=== PATIENT | female | born 1940 | race Caucasian/White ===

== ENCOUNTER 2021-03-25 16:51 | Inpatient (IN) | payer MEDICARE, OTHER ==
[~2021-03-25] VITALS: Ht 157.5 cm; Wt 32.2 kg
[2021-03-25] MEDS ORDERED: SODIUM CHLORIDE 0.9% 500ML 500 ML IV ONE (18:15)
[2021-03-25] MEDS ORDERED: ASPIRIN 81 MG CHEW TAB PO ONE (18:15)
[2021-03-25 18:49] LABS: BASOPHILS # (AUTO) 0.1 (0.0-0.1); BASOPHILS % 0.7 % (0.0-1.0); EOSINOPHILS # (AUTO) 0.1 (0.0-0.4); EOSINOPHILS % 1.1 % (0.0-6.0); HEMOGLOBIN 11.3 g/dL (12.0-16.0); LYMPHOCYTES # (AUTO) 1.7 (1.0-3.2); LYMPHOCYTES % 23.9 % (18.0-39.1); MEAN CORPUSCULAR HGB CONC 31.4 g/dL (31-35); MEAN CORPUSCULAR VOLUME 98.6 fL (81-99); MONOCYTES # (AUTO) 0.6 (0.2-0.8); MONOCYTES % 8.1 % (4.4-11.3); NEUTROPHILS # (AUTO) 4.7 (2.1-6.9); NEUTROPHILS % 65.9 % (38.7-80.0); PLATELET COUNT 273 x10e3/uL (140-360); RED BLOOD COUNT 3.65 x10e6/uL (3.6-5.1); RED CELL DISTRIBUTION WIDTH 21.2 % (11.7-14.4)
[2021-03-25 18:58] LABS: CLARITY,URINE SL CLOUDY (CLEAR); COLOR,URINE AMBER (YELLOW); KETONES,URINE NEGATIVE (NEGATIVE); LEUKOCYTE ESTERASE ,URINE TRACE (NEGATIVE); NITRITE,URINE NEGATIVE (NEGATIVE); PROTEIN,URINE DIPSTICK 1+ (NEGATIVE); URINE UROBILINOGEN 4 mg/dL (0.2 - 1)
[2021-03-25 19:10] LABS: BACTERIA,URINE MODERATE /HPF; EPITHELIAL CELLS,URINE FEW /LPF; RBC,URINE 0-5 /HPF (0-5)
[2021-03-25 19:17] LABS: ALBUMIN 2.9 g/dL (3.5-5.0); ALBUMIN/GLOBULIN RATIO 0.7 (0.8-2.0); ANION GAP 15.1 mmol/L (8-16); CALCIUM 9.3 mg/dL (8.4-10.2); CREATININE, SERUM 1.1 mg/dL (0.57-1.11); POTASSIUM 3.1 mmol/L (3.5-5.1)
[2021-03-25 19:23] LABS: CREATINE KINASE MB 1.2 ng/mL (0-5.0)
[2021-03-25] MEDS ORDERED: POTASSIUM CHLORIDE 20 MEQ TAB CR PO STA (19:25)
[2021-03-25 19:38] LABS: AMYLASE 137 U/L (25-125); LIPASE 90 U/L (8-78)
[2021-03-25] MEDS ORDERED: SODIUM CHLORIDE 0.9% 50ML 50 ML ONE (19:53)
[2021-03-25] MEDS ORDERED: IOPAMIDOL 370 MG/ML 200 ML INFUS..BTL INJ ONE (19:53)
[2021-03-25] MEDS ORDERED: ONDANSETRON HCL INJ 2MG/ML 2ML 2 MG/ML VIAL IV PRN (21:45)
[2021-03-25] MEDS: SODIUM CHLORIDE 0.9% 1000ML 1,000 ML IV SCH (22:51)
[2021-03-26] VITALS (10 sets, daily range): BP systolic 119–145; BP diastolic 61–75
[2021-03-26] MEDS ORDERED: ACETAZOLAMIDE250 MG PO (03:10)
[2021-03-26] MEDS ORDERED: NEURONTIN100 MG PO (03:33)
[2021-03-26] MEDS ORDERED: COMBIVENT RESPIM4 GM IH (03:33)
[2021-03-26] MEDS ORDERED: ASPIRIN81 MG PO (03:33)
[2021-03-26] MEDS ORDERED: DALIRESP500 MCG PO (03:33)
[2021-03-26] MEDS ORDERED: vitamin d (03:33)
[2021-03-26] MEDS ORDERED: PEDIALYTE1000 ML PO (03:33)
[2021-03-26] MEDS ORDERED: ONDANSETRON ODT4 MG PO (03:33)
[2021-03-26] MEDS ORDERED: PROAIR HFA INH8.5 GM (03:33)
[2021-03-26] MEDS ORDERED: LEVOTHYROXINE100 MC2 PO (03:33)
[2021-03-26] MEDS ORDERED: LATANOPROST2.5 ML OP (03:33)
[2021-03-26] MEDS ORDERED: VITAMIN C500 MG PO (03:33)
[2021-03-26] MEDS ORDERED: TIZANIDINE HCL4 MG PO (03:33)
[2021-03-26] MEDS ORDERED: FLUNISOLIDE25 ML (03:33)
[2021-03-26] MEDS ORDERED: DIPHENOXYLATE-1 EACH PO (03:33)
[2021-03-26] MEDS ORDERED: POTASSIUM600 MG (03:33)
[2021-03-26] MEDS ORDERED: MEGESTROL ACETA20 MG PO (03:33)
[2021-03-26] MEDS ORDERED: MIRTAZAPINE15 MG PO (03:33)
[2021-03-26] MEDS: SODIUM CHLORIDE 0.9% 1000ML 1,000 ML IV SCH (05:45)
[2021-03-26 08:16] LABS: BASOPHILS % 0.7 % (0.0-1.0); EOSINOPHILS # (AUTO) 0.3 (0.0-0.4); EOSINOPHILS % 4.6 % (0.0-6.0); HEMATOCRIT 32.7 % (34.2-44.1); HEMOGLOBIN 10.4 g/dL (12.0-16.0); LYMPHOCYTES # (AUTO) 1.6 (1.0-3.2); LYMPHOCYTES % 26.9 % (18.0-39.1); MEAN CORPUSCULAR HEMOGLOBIN 30.9 pg (28-32); MEAN CORPUSCULAR HGB CONC 31.8 g/dL (31-35); MONOCYTES # (AUTO) 0.6 (0.2-0.8); MONOCYTES % 9.8 % (4.4-11.3); NEUTROPHILS # (AUTO) 3.4 (2.1-6.9); NEUTROPHILS % 57.7 % (38.7-80.0); PLATELET COUNT 245 x10e3/uL (140-360); RED BLOOD COUNT 3.37 x10e6/uL (3.6-5.1); RED CELL DISTRIBUTION WIDTH 20.9 % (11.7-14.4)
[2021-03-26 08:42] LABS: ALBUMIN 2.6 g/dL (3.5-5.0); ALBUMIN/GLOBULIN RATIO 0.8 (0.8-2.0); ANION GAP 12.2 mmol/L (8-16); CALCIUM 8.5 mg/dL (8.4-10.2); CREATININE, SERUM 0.8 mg/dL (0.57-1.11); POTASSIUM 3.2 mmol/L (3.5-5.1)
[2021-03-26 08:43] LABS: AMYLASE 97 U/L (25-125); LIPASE 39 U/L (8-78)
[2021-03-26] MEDS ORDERED: ONDANSETRON HCL INJ 2MG/ML 2ML 2 MG/ML VIAL IV PRN (08:45)
[2021-03-26] MEDS ORDERED: TIZANIDINE HCL 4 MG TAB PO PRN (08:45)
[2021-03-26] MEDS ORDERED: ACETAMINOPHEN 325 MG TAB PO PRN (08:45)
[2021-03-26] MEDS: MEGESTROL ACETATE 40 MG TAB PO SCH ×2 (09:00→16:37)
[2021-03-26] MEDS ORDERED: LEVOTHYROXINE SODIUM PO SCH (09:00)
[2021-03-26] MEDS: ASCORBIC ACID 500 MG TAB PO SCH (09:00)
[2021-03-26] MEDS ORDERED: ALBUTEROL/IPRATROPIUM 3 ML NEB NEB PRN (09:00)
[2021-03-26] MEDS: ALBUTEROL/IPRATROPIUM 3 ML NEB NEB SCH ×3 (10:30→18:53)
[2021-03-26] MEDS ORDERED: SODIUM CHLORIDE 0.9% 50ML 50 ML ONE (10:38)
[2021-03-26] MEDS ORDERED: GADOBENATE DIMEGLUMINE 1 ML IV ONE (10:39)
[2021-03-26] MEDS ORDERED: POTASSIUM CHLORIDE 10MEQ EA PO ONE (11:00)
[2021-03-26] MEDS: (Roflumilast (Daliresp) 500 MCG) PO SCH (11:21)
[2021-03-26] MEDS ORDERED: LORAZEPAM INJ 2 MG/ML VIAL IV PRN (12:00)
[2021-03-26] MEDS: LEVOTHYROXINE SODIUM 100 MCG TAB PO SCH (13:00)
[2021-03-26] MEDS: SOD CHL 0.45%/POT CHL 20MEQ 1,000 ML IV SCH ×2 (13:08→21:38)
[2021-03-26] MEDS: CEFTRIAXONE 1 GM in SODIUM CHLORIDE 0.9% 50ML 50 ML IV SCH (13:08)
[2021-03-26] MEDS ORDERED: PREDNISONE 20 MG TAB PO SCH (16:30)
[2021-03-26] MEDS: GABAPENTIN 100 MG CAP PO SCH (21:38)
[2021-03-26] MEDS: MIRTAZAPINE 15 MG TAB PO SCH (21:38)
[2021-03-26] MEDS: LATANOPROST(OPTH) 2.5 ML BTL OP SCH (21:46)
[2021-03-27] VITALS (8 sets, daily range): BP systolic 118–144; BP diastolic 63–85
[2021-03-27] MEDS: SOD CHL 0.45%/POT CHL 20MEQ 1,000 ML IV SCH ×2 (05:00→17:10)
[2021-03-27 05:28] LABS: BASOPHILS % 0.4 % (0.0-1.0); HEMOGLOBIN 11.3 g/dL (12.0-16.0); LYMPHOCYTES # (AUTO) 0.6 (1.0-3.2); LYMPHOCYTES % 11.3 % (18.0-39.1); MEAN CORPUSCULAR HEMOGLOBIN 30.5 pg (28-32); MEAN CORPUSCULAR HGB CONC 31.4 g/dL (31-35); MONOCYTES # (AUTO) 0.1 (0.2-0.8); MONOCYTES % 1.6 % (4.4-11.3); NEUTROPHILS # (AUTO) 4.2 (2.1-6.9); NEUTROPHILS % 86.5 % (38.7-80.0); PLATELET COUNT 283 x10e3/uL (140-360); RED BLOOD COUNT 3.71 x10e6/uL (3.6-5.1); RED CELL DISTRIBUTION WIDTH 20.9 % (11.7-14.4)
[2021-03-27 06:01] LABS: ALBUMIN 2.8 g/dL (3.5-5.0); ALBUMIN/GLOBULIN RATIO 0.7 (0.8-2.0); ANION GAP 14.5 mmol/L (8-16); CALCIUM 8.9 mg/dL (8.4-10.2); CHOL/HDL RATIO 7.9 (3.0-3.6); CREATININE, SERUM 0.92 mg/dL (0.57-1.11); MAGNESIUM 1.8 MG/DL (1.3-2.1); PHOSPHORUS 2.5 MG/DL (2.3-4.7); POTASSIUM 4.5 mmol/L (3.5-5.1)
[2021-03-27] MEDS: LEVOTHYROXINE SODIUM 100 MCG TAB PO SCH (06:09)
[2021-03-27 06:23] LABS: THYROID STIMULATING HORMONE 2.041 uIU/mL (0.350-4.940)
[2021-03-27] MEDS: ALBUTEROL/IPRATROPIUM 3 ML NEB NEB SCH ×3 (07:01→18:34)
[2021-03-27] MEDS: (Roflumilast (Daliresp) 500 MCG) PO SCH (08:44)
[2021-03-27] MEDS ORDERED: PREDNISONE 20 MG TAB PO SCH (09:00)
[2021-03-27] MEDS: CEFTRIAXONE 1 GM in SODIUM CHLORIDE 0.9% 50ML 50 ML IV SCH (09:05)
[2021-03-27] MEDS: ASCORBIC ACID 500 MG TAB PO SCH (09:05)
[2021-03-27] MEDS: MEGESTROL ACETATE 40 MG TAB PO SCH ×2 (09:05→17:10)
[2021-03-27] MEDS: PREDNISONE 10 MG TAB PO SCH (09:05)
[2021-03-27] MEDS: MIRTAZAPINE 15 MG TAB PO SCH (21:10)
[2021-03-27] MEDS: GABAPENTIN 100 MG CAP PO SCH (21:10)
[2021-03-27] MEDS: LATANOPROST(OPTH) 2.5 ML BTL OP SCH (21:13)
[2021-03-28 00:06] VITALS: BP 122/68
[2021-03-28] MEDS: SOD CHL 0.45%/POT CHL 20MEQ 1,000 ML IV SCH ×2 (01:00→11:00)
[2021-03-28] MEDS: ALBUTEROL/IPRATROPIUM 3 ML NEB NEB SCH ×2 (02:49→07:40)
[2021-03-28 04:00] VITALS: BP 102/76
[2021-03-28] MEDS: LEVOTHYROXINE SODIUM 100 MCG TAB PO SCH (05:51)
[2021-03-28 07:52] VITALS: BP 121/69
[2021-03-28] MEDS: PREDNISONE 10 MG TAB PO SCH (09:00)
[2021-03-28] MEDS: (Roflumilast (Daliresp) 500 MCG) PO SCH (09:00)
[2021-03-28] MEDS: CEFTRIAXONE 1 GM in SODIUM CHLORIDE 0.9% 50ML 50 ML IV SCH (09:00)
[2021-03-28] MEDS: ASCORBIC ACID 500 MG TAB PO SCH (09:00)
[2021-03-28] MEDS: MEGESTROL ACETATE 40 MG TAB PO SCH (09:00)
[2021-03-28 09:38] VITALS: BP 121/69
[2021-03-28] MEDS ORDERED: MEGESTROL ACETA40 MG PO (11:20)
[2021-03-28] MEDS ORDERED: KEFLEX125 MG/5 M PO (11:21)
[2021-03-28] MEDS ORDERED: PREDNISONE10 MG PO (11:21)
[2021-03-28 11:37] VITALS: BP 144/78
== END 2021-03-28 12:00 | disposition home or self-care (01) | DRG 442 ==
LOC: ER 18:20 → ERHOLD 21:47 → MED/SURG 03-26 01:34
PROVIDERS: ADMIT Internal Medicine; ATTEND Internal Medicine
DX: K75.4 Autoimmune hepatitis (principal); C34.32 Malignant neoplasm of lower lobe, left bronchus or lung; Z68.1 Body mass index [BMI] 19.9 or less, adult; N39.0 Urinary tract infection, site not specified; E44.0 Moderate protein-calorie malnutrition; E06.3 Autoimmune thyroiditis; I71.4 Abdominal aortic aneurysm, without rupture; I10 Essential (primary) hypertension; J44.9 Chronic obstructive pulmonary disease, unspecified; R63.0 Anorexia; Z20.822 Contact with and (suspected) exposure to COVID-19; Z87.891 Personal history of nicotine dependence; Z85.3 Personal history of malignant neoplasm of breast
CPT/HCPCS: 36415; 71045; 74177; 74183; 80053; 80061; 81001; 82150; 82550; 82553; 82607; 82746; 83540; 83690; 83735; 84100; 84443; 84466; 84484; 85025; 93005; 94640; 96360; 99284; J0696; J2060; J7030; J7040; J7512; Q9967; U0002